=== PATIENT | female | born 1965 | race Caucasian/White ===

== ENCOUNTER → 2020-09-09 | Outpatient (CLI) | payer OTHER ==
[~2020-09-09] MED LIST: DIABETA 2.5 MG2.5 MG PO; LIPITOR TAB 2020 MG PO; METFORMIN HCL500 M2 PO; PRINIVIL5 MG PO
== END ==
LOC: US 13:45
DX: I82.401 Acute embolism and thrombosis of unspecified deep veins of right lower extremity (principal); R60.0 Localized edema
CPT/HCPCS: 93971

== ENCOUNTER → 2020-11-19 | Outpatient (CLI) | payer OTHER | LOC: RAD 17:46 | DX: M54.2 Cervicalgia (principal) | CPT/HCPCS: 72040 ==

== ENCOUNTER → 2021-03-28 | Outpatient (CLI) | payer OTHER | LOC: MRI 09:47 | DX: M54.2 Cervicalgia (principal); M25.512 Pain in left shoulder; M50.31 Other cervical disc degeneration, high cervical region | CPT/HCPCS: 72141 ==

== ENCOUNTER → 2021-04-23 | Outpatient (CLI) | payer BC | LOC: EXRD 13:30 | DX: R22.1 Localized swelling, mass and lump, neck (principal) | CPT/HCPCS: 76536 ==

== ENCOUNTER → 2021-06-26 | Outpatient (CLI) | payer BC ==
[2021-06-26 11:49] LABS: HEMOGLOBIN 14.1 gm/dl (12.3-15.3); RED BLOOD COUNT 4.42 M/UL (4.00-5.10); WHITE BLOOD COUNT 16.9 K/UL (4.5-11.0)
[2021-06-26 12:38] LABS: BUN/CREATININE RATIO 36 (0-10)
[2021-06-27 08:14] LABS: VITAMIN D, 25-HYDROXY 20.2 ng/mL (30.0-100.0)
== END ==
LOC: LAB 10:50
PROVIDERS: Nurse Practitioner Family
DX: Z01.812 Encounter for preprocedural laboratory examination (principal); L03.119 Cellulitis of unspecified part of limb
CPT/HCPCS: 36415; 80053; 80061; 82607; 82746; 83036; 83540; 83550; 83690; 84439; 84443; 84550; 85025